=== PATIENT | male | born 1990 | race Two or more races ===

== ENCOUNTER → 2017-10-22 | Emergency (ER) | payer BC ==
[~2017-10-22] VITALS: Ht 177.8 cm; Wt 77.6 kg
[~2017-10-22] MED LIST: LORAZEPAM INJ 2 MG/ML VIAL IM STA; LORAZEPAM INJ 2 MG/ML VIAL ONE
[2017-10-22 13:35] VITALS: BP 140/76
== END | disposition home or self-care (01) ==
LOC: ER 13:07
DX: F41.9 Anxiety disorder, unspecified (principal); F17.200 Nicotine dependence, unspecified, uncomplicated
CPT/HCPCS: 71045-TC; A4606; J2060; Z7610